=== PATIENT | female | born 1985 | race Two or more races ===

== ENCOUNTER → 2025-10-04 | Outpatient (CLI) | payer MEDICAID, SELFPAY ==
--- NOTE | 2025-10-04 09:00 | XR_ITS ---
Examination: Screening digital mammography, bilateral Computer aided detection 3-D breast Tomosynthesis, bilateral Date and time of exam: 10/04/2025, 8:35 a.m. Comparisons: None available. If prior mammograms can be obtained recommend comparison with today's exam. Indications: Screening Technique: Nonmagnified MLO, CC views of the breasts to been obtained, reconstructed from 3-D Tomosynthesis images. R2 computer aided detection program utilized for evaluation of suspicious masses and/or abnormal calcifications. 3-D Tomosynthesis images obtained. Technologist: Findings: The breasts are heterogeneously dense, which may obscure small masses.3.5 cm left upper outer quadrant/axillary oval circumscribed mass. Otherwise, no evidence of abnormal masses or suspicious calcifications. Impression:3.5 cm left upper outer quadrant/axillary mass. Spot compression views and ultrasound evaluation recommended. BI-RADS category 0: Incomplete assassment; need additional imaging evaluation
== END | disposition home or self-care (01) ==
DX: Z12.31 Encounter for screening mammogram for malignant neoplasm of breast (principal); N63.32 Unspecified lump in axillary tail of the left breast; N63.21 Unspecified lump in the left breast, upper outer quadrant; R92.8 Other abnormal and inconclusive findings on diagnostic imaging of breast
CPT/HCPCS: 77063; 77067

== ENCOUNTER 2025-10-09 14:20 | Emergency (ER) | payer MEDICAID, SELFPAY ==
[2025-10-09 14:39] VITALS: BP 109/71; PULSE 89; RESP 18; TEMP 36.8; O2SAT 96; BMI 32.5
--- NOTE | 2025-10-09 14:54 | XR_ITS ---
Examination: Pelvic ultrasound, transabdominal, complete Technique: Transabdominal ultrasound of the pelvis performed using grayscale imaging Date and time of exam: October 09, 2025, 1639 hours INDICATIONS: Pelvic pain and vaginal bleeding beginning today FINDINGS: Uterus 10.6 cm endometrial stripe 0.5 cm Benign cervical cyst No uterine mass or intrauterine gestation Right ovary 1.9 cm arterial flow Left ovary 1.9 cm arterial flow No fluid in the cul-de-sac IMPRESSION: No uterine mass or intrauterine gestation No adnexal mass, negative for ovarian torsion
[2025-10-09 15:17] LABS: Basophils # (Auto) 0.1 Thou/mm3 (0.0-0.2); Basophils % (Auto) 1 % (0-2.5); Eosinophils # (Auto) 0.2 Thou/mm3 (0.0-0.5); Eosinophils % (Auto) 3 % (0-10); Hematocrit 35.2 % (36.0-46.0); Hemoglobin 11.2 g/dL (12.0-16.0); Immature Granulocytes Auto 0.02 Thou/mm3 (0.00-0.00); Lymphocytes # (Auto) 2.0 Thou/mm3 (1.0-4.8); Lymphocytes % (Auto) 32 % (10-50); Mean Corpuscular HGB Conc 31.8 g/dl (31.0-37.0); Mean Corpuscular Hemoglobin 24.1 pg (25.0-35.0); Mean Corpuscular Volume 76 fL (80-100); Monocytes # (Auto) 0.6 Thou/mm3 (0.0-0.8); Monocytes % (Auto) 10 % (0-12); Neutrophils # (Auto) 3.4 Thou/mm3 (1.8-7.7); Neutrophils % (Auto) 54 % (37-80); Nucleated Red Blood Cell # 0.00 Thou/mm3 (0.00-0.00); Nucleated Red Blood Cell % 0 /100 WBC (0); Platelet Count 292 Thou/mm3 (140-440); RDW Standard Deviation 41.1 fL (36.4-46.3); Red Blood Count 4.65 Miln/mm3 (4.00-5.20); White Blood Count 6.3 Thou/mm3 (3.6-11.0)
[2025-10-09 15:24] LABS: Alanine Aminotransferase 60 U/L (10-49); Albumin, Serum 4.5 gm/dL (3.5-5.0); Albumin/Globulin Ratio 2.1 (1.2-2.2); Alkaline Phosphatase 142 U/L (46-116); Anion Gap 9 (7-16); Aspartate Amino Transferase 30 U/L (0-34); BUN/Creatinine Ratio 13 Ratio (12-20); Bilirubin,Total 0.2 mg/dL (0.3-1.2); Blood Urea Nitrogen 10 mg/dL (9-23); Calcium 9.1 mg/dL (8.3-10.6); Calcium (Corrected) 9.1 mg/dL (8.5-10.1); Carbon Dioxide 27.5 mMol/L (20.0-31.0); Chloride 101 mMol/L (98-107); Creatinine (Component) 0.8 mg/dL (0.6-1.3); Estimated Creatinine Clearance 83.2 mL/min (>60); Globulin 2.1 gm/dL (2.3-3.5); Glucose 359 mg/dL (74-106); Osmolality,Calculated 286 (275-295); Potassium 4.8 mMol/L (3.4-5.1); Sodium 137 mMol/L (136-145); Total Protein 6.6 gm/dL (5.7-8.2); eGFR > 60 See Note
[2025-10-09 16:08] LABS: Glucose Estimated Average 246 mg/dL (80-131); Hemoglobin A1C 10.2 % Hgb (4.8-6.0)
[2025-10-09 16:39] LABS: HCG,Qualitative Serum Negative
--- NOTE | 2025-10-09 16:55 | EDNOTE_ITS ---
<Statement entered by Anyi Mejia MD - 10/29/25 06:20> As co-signing physician, I was present and available for consult prn. I concur with the plan and care as documented by the midlevel provider. ED Female Urogenital RME/HPI General Chief complaint: Urogenital-Female Stated complaint: VAGINAL PAIN X2HS BLEEDING ON MENSES Time Seen by Provider: 10/09/25 14:33 Arrival date/time: 10/09/25 14:20 40-year-old female presents to the emergency department today for complaints of a 2-hour history of vaginal pain patient reports she is currently menstruating and has pelvic pain. Limitations: no limitations Related Data Home Medications ?Medication ?Instructions ?Recorded ?Confirmed Vitamin * 1 tab PO QDAY #0 tabs ferrous sulfate 325 mg (65 mg 325 mg PO QDAY #0 tabs 0 03/20/16 iron) tablet (Feosol) folic acid 1 mg tablet 1 mg PO QDAY #0 tabs 6 Allergies Allergy/AdvReac Type Severity Reaction Status Date / Time NKA* Allergy Uncoded 10/09/25 14:28 Review of Systems Review of Systems Systems Reviewed: All systems reviewed, normal except as documented Constitutional Constitutional: Reports system reviewed and no additional complaints, except as documented, Denies fever(s) and Denies headache(s) Eyes Eyes: Reports system reviewed and no additional complaints, except as documented and Denies blurry vision ENT Ears, Nose, Mouth, and Throat: Reports system reviewed and no additional complaints, except as documented, Denies headache(s), Denies nasal congestion and Denies nasal discharge Cardiovascular Cardiovascular: Reports system reviewed and no additional complaints, except as documented, Denies chest pain and Denies dyspnea Respiratory Respiratory: Reports system reviewed and no additional complaints, except as documented, Denies chest congestion, Denies cough and Denies dyspnea Gastrointestinal Gastrointestinal: Reports system reviewed and no additional complaints, except as documented and Denies abdominal pain Genitourinary Genitourinary: Reports system reviewed and no additional complaints, except as documented, Denies abnormal vaginal bleeding and Reports pelvic pain Integumentary/Breasts Skin/Breast: Reports system reviewed and no additional complaints, except as documented and Denies rash Neurologic Neurologic: Reports system reviewed and no additional complaints, except as documented, Reports as per HPI and Denies headache(s) Past Medical History Social History SMOKING STATUS: Never smoker ED Exam General Limitations: Present no limitations General appearance: Present alert and in no apparent distress Head Head exam: Present atraumatic, normocephalic and normal inspection Eye Eye exam: Present normal appearance, PERRL and EOMI; Absent conjunctival injection ENT ENT exam: Present normal exam, normal oropharynx and mucous membranes moist Neck Neck exam: Present normal inspection, full ROM and trachea midline Chest Chest inspection: Present normal inspection and symmetric chest wall rise Respiratory Respiratory exam: Present normal lung sounds bilaterally Cardiovascular Cardiovascular exam: Present regular rate, normal rhythm and normal heart sounds Abdominal Exam Abdominal exam: Present soft and normal bowel sounds; Absent distention, tenderness, guarding, rebound or rigidity Extremities Exam Extremities exam: Present normal inspection and full ROM Back Exam Back exam: Present normal inspection and full ROM Neurological Exam Neurological exam: Present alert, oriented X3 and CN II-XII intact Psychiatric Psychiatric exam: Present normal affect and normal mood Skin Skin exam: Present warm, dry, intact and normal color Course Quality Measures none Orders Category Date Time Status US pelvic complete Stat Exams 10/09/25 14:54 Completed A1C [Glycohemoglobin w (eAG)] Stat Lab 10/09/25 14:58 Completed CBC Stat Lab 10/09/25 14:58 Completed CMP [Comprehensive Metabolic Panel] Stat Lab 10/09/25 14:58 Completed HCG,Qualitative Serum Stat Lab 10/09/25 14:58 Completed Vital Signs Vital signs: Vital Signs Temperature 98.3 F 10/09/25 14:39 Pulse Rate 89 10/09/25 14:39 Respiratory Rate 18 10/09/25 14:39 Blood Pressure 109/71 10/09/25 14:39 Pulse Oximetry (%) 96 10/09/25 14:39 Oxygen Delivery Method Room Air 10/09/25 14:39 O2 saturation 96% on room air within normal limits Urogenital - Female MDM Narrative MDM Narrative:: 40-year-old female presents to the emergency department today for complaints of a 2-hour history of vaginal pain patient reports she is currently menstruating and has pelvic pain. On exam patient well-appearing does not appear ill or toxic no acute distress Patient was no chest pain shortness breath or abdominal pain Patient reports symptoms only started 2 hours ago Lab work obtained patient has increased A1c and average sugar I discussed these findings with the patient patient reports she has not taken her medication in over a year. Explained to the patient the high probability of poor outcome if she does not take her medication over a long period of time As far as patient's findings today other than elevated blood sugar patient has no acute emergent findings Patient discharged home in no distress to follow-up with primary care doctor in the next 24 to 48 hours and for any worsening symptoms to return to the ER immediately Patient data External records reviewed:: [facility] previous records Clinical information provided by:: patient Social determinants that could affect healthcare access:: none Patient has the following chronic illnesses:: See history How is presenting disease/condition affected by chronic disease/condition?: uneffected by Evaluation data The following diagnostics were reviewed and interpreted by me:: lab results and radiology exam(s) Lab and/or radiology exams considered but not ordered:: Labs radiology obtained Interpretation Summary: Reviewed by me Medications / Prescriptions Medications or Prescriptions considered but not ordered:: No medication Medication administrations:: No medication Consultations Consultation(s) initiated? (list below): No Diagnosis Urogenital Female Differential Diagnosis: urinary tract infection and cystitis Most likely diagnosis given after review of the tests above:: Pelvic pain Admission Indicated Admission indicated?: not indicated Admission Request Was there a request for admission?: No Disposition Plan Disposition Plan: Discharge Discharge Attestation Discharge Attestation: The patient and all family members were given an opportunity to ask questions and understood the discharge instructions. Discharge instructions specifically effects, indications for sooner follow up or return to the emergency department, and the expected course of current diagnosis. Patient condition: Stable Discharge Plan Plan Patient Disposition: HOME (Self Care) Discharge Disposition comment: Stable Prescriptions/Referrals Prescriptions/Med Rec: No Action ferrous sulfate [Feosol] 1 TAB tablet 325 mg PO QDAY Qty: 0 folic acid 1 MG tablet 1 mg PO QDAY Qty: 0 Vitamin * 1 EACH tablet 1 tab PO QDAY Qty: 0 Referrals: No Primary/Family,Physician [Primary Care Provider] - 10/10/25 Problem List Clinical Impression: Ovarian cyst, Poorly controlled diabetes mellitus Patient/Caregiver Discharge Instructions Education Materials: Diabetes: Activity Tips Additional Instructions: You are average sugars 246 with an A1c of 10.2 you need to be treated by your PCP for your diabetes. Please follow up with your primary care doctor in the next 24-48hrs for any worsening symptoms return here immediately Print Language: Nepali Stand Alone Forms: Denisse Award Info., Patient Portal Info Letter PA/SENIOR UI WEB DEVELOPER Supervising Physician PA/SENIOR UI WEB DEVELOPER Supervising Physician: Dr. Mejia
== END 2025-10-09 17:22 | disposition home or self-care (01) ==
PROVIDERS: Nurse Practitioner Primary Care; Emergency Provider Emergency Medicine
DX: N83.209 Unspecified ovarian cyst, unspecified side (principal); E11.65 Type 2 diabetes mellitus with hyperglycemia
CPT/HCPCS: 36415; 76856; 80053; 83036; 84703; 85025; 99283